=== PATIENT | male | born 1970 | race Caucasian/White ===

== ENCOUNTER 2017-04-11 05:37 | Day surgery (SDC) | payer OTHER ==
[~2017-04-11] VITALS: Ht 185.4 cm; Wt 103.9 kg
[2017-04-11] VITALS (12 sets, daily range): BP systolic 101–125; BP diastolic 63–81; PULSE 76–84; RESP 14–20; Ht 185.4 cm; Wt 103.9 kg
[~2017-04-11 05:37] MED LIST: ACAR25TA8 PO; METF500T PO
[2017-04-11] MEDS ORDERED: ASPI81TA3 PO (06:36)
[2017-04-11] MEDS ORDERED: LOSA25TA5 PO (06:36)
[2017-04-11] MEDS ORDERED: ATOR40TA68 PO (06:36)
[2017-04-11] MEDS ORDERED: BUPIVACAINE 0.5% (SDV) 30 ML INJ ONE (06:57)
[2017-04-11] MEDS ORDERED: POLYMYXIN/BACITRACIN 1L IRRIG ONE (06:57)
[2017-04-11] MEDS ORDERED: CEFAZOLIN 1 GM INJ ONE (07:00)
[2017-04-11] MEDS ORDERED: PROPOFOL 20 ML ONE (07:40)
[2017-04-11] MEDS ORDERED: FENTAnyl 50 MCG/ML VIAL ONE ×2 (07:40→08:22)
[2017-04-11] MEDS ORDERED: MIDAZOLAM 1 MG/ML 2 ML INJ ONE (07:40)
--- NOTE | 2017-04-11 07:55 | HPN ---
Date/Time of Note Date/Time of Note DATE: 04/11/17 TIME: 07:55 Interval H&P Admission Note Pt. seen H&P reviewed: No system changes KING GARCIA DPM Apr 11, 2017 07:55
[2017-04-11] MEDS ORDERED: POLYMYXIN/BACITRACIN 1L IRRIG IRR ONE (08:11)
[2017-04-11] MEDS ORDERED: PHENYLephrine (100 MCG/ML) 5ML SYG ONE ×3 (08:13→08:48)
[2017-04-11] MEDS ORDERED: METOCLOPRAMIDE 10 MG INJ ONE (08:36)
[2017-04-11] MEDS ORDERED: DEXAMETHASONE 4 MG/ML 1 ML INJ ONE (08:36)
[2017-04-11] MEDS ORDERED: ONDANSETRON 4 MG INJ ONE (08:36)
[2017-04-11] MEDS ORDERED: KETOROLAC 30 MG INJ ONE (08:36)
[2017-04-11] MEDS ORDERED: ACETAMINOPHEN 1000MG/100ML IV 100 ML ONE (08:37)
[2017-04-11] MEDS ORDERED: ROPIVACAINE 0.5 % 30 ML VIAL ONE (08:39)
--- NOTE | 2017-04-11 08:52 | OPR ---
Date/Time of Note Date/Time of Note DATE: 04/11/17 TIME: 08:52 Operative Report Procedure Date: Apr 11, 2017 Preoperative Diagnosis Severe rigid right hallux hammertoe deformity Severe rigid right second hammertoe deformity Diabetes mellitus Peripheral neuropathy Peripheral vascular disease History of chronic ulcerations on both feet History of multiple foot surgeries bilaterally Postoperative Diagnosis Severe rigid right hallux hammertoe deformity Severe rigid right second hammertoe deformity Diabetes mellitus Peripheral neuropathy Peripheral vascular disease History of chronic ulcerations on both feet History of multiple foot surgeries bilaterally Surgeon: KING GARCIA DPM Anesthesia: general Estimated Blood Loss: minimal Specimens Bone from right foot second toe Grafts/Implants K-wire fixation right second toe Complications: None Pt Condition Post Procedure: stable Disposition: PACU Indications This is a pleasant 46-year-old male patient with multiple medical problems who has been suffering with chronic open wounds on both feet. He has been followed consistently at the amputation prevention center and we were able to successfully close most of his wounds. At the present moment, he has no open wounds on both feet. He does however have severe rigid hammertoe deformities on both feet mainly in the right hallux and second toes. He has been struggling with an open wound on the right hallux which is closed at this point. My recommendation was for surgical correction of the rigid hammertoe deformities in order to prevent further worsening of his condition. Risks and complications of this type surgery was discussed with patient in great detail. The risks and complications discussed include, but are not limited to, postoperative infection, postoperative pain and disability, failure of surgery to correct the problem, need for additional surgical procedures, failure of hardware, new deformity formation, continued ulceration and hyperkeratotic skin formation, deep venous thrombosis, limb loss and loss of life. The patient acknowledges full understanding of the risks and complications discussed and agrees to the procedure. An informed consent was obtained, signed and placed in the chart. No guarantee or warranty was given or implied as to the outcome of the procedure, either in verbal or written form. Operative\Procedure Findings Severe rigid right hallux hammertoe deformity Severe rigid right second hammertoe deformity Significant hyperkeratosis on the plantar medial and medial aspect of the hallux Procedure Description The patient was seen in the preoperative area. Proposed surgery was discussed with patient in great detail. Risks and complications were discussed. An informed consent was obtained and signed. Patient was then taken to the operating room and was placed on the operating table in the supine position. Patient was then placed under general anesthesia. All bony prominences were properly padded. A timeout was called by the circulating nurse and everyone in the operating room participated. A pneumatic ankle tourniquet was applied to the right ankle. The right foot was then scrubbed, prepped and draped in the usual aseptic manner. Attention was directed to the right second digit hammertoe. Procedure #1: Surgical repair right second digit hammertoe deformity with K wire fixation A 2 cm linear incision was made over the dorsal aspect of the right second toe using a #15 blade. Dissection was deepened using blunt and sharp dissection techniques. Bleeders were cauterized as necessary. Vital neurovascular structures were identified and protected. The extensor digitorum longus tendon was identified and transected at the level of the proximal interphalangeal joint. The proximal interphalangeal joint was then exposed using sharp dissection. The head of the proximal phalanx was cut and passed to the field. The base of the middle phalanx was denuded of cartilage using a rongeur. Next, copious amounts of sterile normal saline was used for irrigation. A 0.062 K wire was inserted for fixation. The distal interphalangeal joints seemed tight. I went ahead and did a flexor tenotomy at this point to release the etc. tension that is present. This procedure reduce the severe rigid hammertoe deformity that was present. The wounds were then flushed with copious amounts of sterile normal saline. I reapproximated the extensor tendon at the level of the proximal interphalangeal joint using 4-0 Vicryl suture in simple suture technique. The subcutaneous layer was closed using 4-0 Vicryl suture and the skin was closed using 5-0 Monocryl in simple suture technique. The plantar incision was also closed with simple suture technique using 5-0 Monocryl. Procedure #2: Surgical correction of rigid right hallux using flexor tenotomy Attention was then directed to the right hallux which was found to have a rigid contracture at the interphalangeal joint, however it was found that most of the rigidity is from the flexor tendon contracture. A #15 blade was used to do a flexor tenotomy at this level as well and this release the contracture that was present. Because of the fact the patient had a chronic open wound on the hallux with possible exposure of bone, I did not want to insert any hardware in this location. However the reduction was found to be satisfactory for the right hallux contracture. The wound was flushed with copious amounts of sterile normal saline. Next, the skin was closed using 5-0 Monocryl in simple suture technique. Postoperative injection of 0.5% Marcaine plain was given. Sterile dressing was applied to the right foot. The pneumatic ankle tourniquet was deflated at this time and prompt hyperemic response was noted to digits of the right foot. The patient tolerated the procedure and anesthesia well. He was transferred to recovery room with vital signs stable and vascular status intact to the right foot. The patient will be sent home after postoperative monitoring. Postoperative orders were written. Patient is going to be followed up at the amputation prevention center in 1 week. Prescription was given for pain medication. Patient is to do partial weightbearing on the right foot using postop shoe and crutches. KING GARCIA DPM Apr 11, 2017 08:52
--- NOTE | 2017-04-11 08:52 | OPPN ---
Date/Time of Note Date/Time of Note DATE: 04/11/17 TIME: 08:49 Operative Report Preoperative Diagnosis Rigid right hallux hammertoe Rigid right second hammertoe Peripheral vascular disease Diabetes mellitus Peripheral neuropathy Postoperative Diagnosis Rigid right hallux hammertoe Rigid right second hammertoe Peripheral vascular disease Diabetes mellitus Peripheral neuropathy Operation/Procedure Performed Surgical correction right second rigid hammertoe deformity Flexor tenotomy right second toe Flexor tenotomy right hallux Provider: KING GARCIA DPM Anesthesia: general Estimated blood loss: minimal Specimens Bone from right second toe Complications: None KING GARCIA DPM Apr 11, 2017 08:52
[2017-04-11] MEDS ORDERED: DIPHENHYDRAMINE 50 MG INJ IV PRN (09:00)
[2017-04-11] MEDS ORDERED: EPHEDrine SULFATE 50 MG/5 ML SYG IV PRN (09:00)
[2017-04-11] MEDS ORDERED: FENTAnyl 50 MCG/ML VIAL IV PRN ×2 (09:00)
[2017-04-11] MEDS ORDERED: ONDANSETRON 4 MG INJ IV PRN (09:00)
[2017-04-11] MEDS ORDERED: LABETALOL HCL 20MG INJ IV PRN (09:00)
[2017-04-11] MEDS ORDERED: morphine (1 MG/ML) 10ML SYRINGE IV PRN ×2 (09:00)
[2017-04-11] MEDS ORDERED: OXYCODONE/ACETAMINOPHEN (5/325) TAB PO PRN ×2 (09:00)
[2017-04-11] MEDS ORDERED: MEPERIDINE 25 MG INJ IV PRN (09:00)
--- NOTE | 2017-04-11 16:11 | RADRPT ---
PROCEDURE: Foot radiographs CLINICAL INDICATION: Postoperative evaluation. TECHNIQUE: AP, lateral and oblique views of the right foot was obtained. COMPARISON: Radiograph from 01/08/2015. FINDINGS: The tuft and distal phalanx of the first toe is partially eroded. There is marked overlying soft tissue swelling. A new intramedullary nail traverses the DIP and PIP joints of the second toe. Old resection of the third metatarsal head with the foreshortening of the third ray. Three screws secure an old fracture of the distal fibula. Old fracture deformity of the second metatarsal. Moderate hallux valgus alignment. Metallic densities overlying the second metatarsal and proximal phalanx of the first toe. IMPRESSION: 1. New intramedullary nail secures the DIP and PIP joints of the second toe resulting in improved a lignment compared to January 2015. 2. Bone destruction involving the distal phalanx of the great toe suspicious for osteomyelitis. The re is surrounding soft tissue swelling. RPTAT: PP Physician German Date Time Electronically viewed and signed by Physician German on 04/11/2017 16:10 LG/
== END 2017-04-11 11:15 | disposition home or self-care (01) ==
LOC: SDS 05:37
PROVIDERS: ATTEND Podiatrist Foot & Ankle Surgery
DX: M20.41 Other hammer toe(s) (acquired), right foot (principal); E11.42 Type 2 diabetes mellitus with diabetic polyneuropathy; E11.51 Type 2 diabetes mellitus with diabetic peripheral angiopathy without gangrene; E11.621 Type 2 diabetes mellitus with foot ulcer; L97.512 Non-pressure chronic ulcer of other part of right foot with fat layer exposed; E78.5 Hyperlipidemia, unspecified; I10 Essential (primary) hypertension; E66.9 Obesity, unspecified; Z68.30 Body mass index [BMI] 30.0-30.9, adult; Z83.3 Family history of diabetes mellitus; L85.9 Epidermal thickening, unspecified
CPT/HCPCS: 28285; 73630; 82962; 88305; 88311; C1713; J0131; J0690; J1100; J1885; J2250; J2370; J2405; J2765; J2795; J3010; L3260; Z7512; Z7610

== ENCOUNTER 2018-05-20 19:27 | Emergency (ER) | END 2018-05-20 23:42 | disposition home or self-care (01) ==

== ENCOUNTER → 2018-07-23 | Emergency (ER) | END | disposition home or self-care (01) ==